=== PATIENT | male | born 1970 | race Caucasian/White ===

== ENCOUNTER → 2020-01-22 | Outpatient (CLI) | payer BC | LOC: RAD 11:20 | DX: N32.89 Other specified disorders of bladder (principal); N13.1 Hydronephrosis with ureteral stricture, not elsewhere classified ==

== ENCOUNTER → 2020-07-04 | Outpatient (CLI) | payer BC | LOC: RAD 15:25 | DX: N26.1 Atrophy of kidney (terminal) (principal); Z90.49 Acquired absence of other specified parts of digestive tract | CPT/HCPCS: Q9967 ==

== ENCOUNTER → 2020-09-16 | Outpatient (CLI) | payer BC | LOC: RAD 15:29 | DX: N13.5 Crossing vessel and stricture of ureter without hydronephrosis (principal); N26.1 Atrophy of kidney (terminal); Z98.890 Other specified postprocedural states | CPT/HCPCS: Q9967 ==